=== PATIENT | female | born 1965 | race Caucasian/White ===

== ENCOUNTER 2016-11-29 12:06 | Emergency (ER) | payer OTHER ==
[2016-11-29 12:07] VITALS: BMI 60.5
[2016-11-29 12:19] VITALS: BP 147/94; PULSE 70; RESP 20; TEMP 97.9; O2SAT 98
--- NOTE | 2016-11-29 12:52 | C.PDOC ---
History Of Present Illness 51 yr old female presents to the ER with complaints of pain to the right premolar for the past 2-3 days. Patient reports she wears a partial dentures and thinks its rubbing on her gums. Patient denies fever, throat pain, swelling , drainage or neck pain. Time Seen by Provider: 11/29/16 12:19 Chief Complaint (Nursing): Dental Pain History Per: Patient History/Exam Limitations: no limitations Onset/Duration Of Symptoms: Days (2-3) Current Symptoms Are (Timing): Still Present Past Medical History Reviewed: Historical Data, Nursing Documentation, Vital Signs Vital Signs: Last Vital Signs Temp 97.9 F 11/29/16 12:12 Pulse 70 11/29/16 12:12 Resp 20 11/29/16 12:12 BP 147/94 H 11/29/16 12:12 Pulse Ox 98 11/29/16 12:53 - Medical History PMH: Asthma Surgical History: Family History: States: No Known Family Hx - Social History Hx Tobacco Use: No Hx Alcohol Use: No Hx Substance Use: No - Immunization History Hx Tetanus Toxoid Vaccination: No Hx Influenza Vaccination: No Hx Pneumococcal Vaccination: No Review Of Systems Except As Marked, All Systems Reviewed And Found Negative. Constitutional: Negative for: Fever ENT: Positive for: Other ((+) Right, upper premolar pain. No gum swelling or bleeding. ). Negative for: Throat Pain Musculoskeletal: Negative for: Neck Pain Physical Exam - Physical Exam Appears: Non-toxic, No Acute Distress Skin: Warm, Dry, No Rash Head: Atraumatic, Normacephalic Oral Mucosa: Moist Teeth: Tender To Palpation (Right upper premolar), Other ((+) Right Upper Premolar - No tooth presents. No swelling. No abscess. ) Throat: Normal, No Erythema, No Exudate Neck: Normal, Normal ROM, Supple Extremity: Normal ROM, No Swelling Neurological/Psych: Oriented x3, Normal Speech, Normal Motor ED Course And Treatment O2 Sat by Pulse Oximetry: 98 Medical Decision Making Medical Decision Making: PLAN: * Amoxicillin PO * Motrin PO * Lidocaine Viscous PO On re-exam the patient reports improvement of symptoms. Disposition - Disposition Referrals: Pako Langston DMD [Staff Provider] - Disposition: HOME/ ROUTINE Disposition Time: 12:56 Condition: GOOD Additional Instructions: Follow up with the dentist within 1-2 days, Return if worsened. Prescriptions: Amoxicillin [Amoxil 500 mg Cap] 500 mg PO TID #30 cap Ibuprofen [Motrin Tab] 800 mg PO TID #20 tab traMADol [Ultram] 50 mg PO Q6 PRN #20 tab PRN Reason: Pain, Severe (8-10) Instructions: Toothache (ED) - Clinical Impression Clinical Impression: Toothache, Dental caries - PA / CLOTH PACKER / Resident Statement MD/DO has reviewed & agrees with the documentation as recorded. - Scribe Statement The provider has reviewed the documentation as recorded by the Scribe Wanda Schultz All medical record entries made by the Jayson were at my direction and personally dictated by me. I have reviewed the chart and agree that the record accurately reflects my personal performance of the history, physical exam, medical decision making, and the department course for this patient. I have also personally directed, reviewed, and agree with the discharge instructions and disposition.
== END 2016-11-29 13:03 | disposition home or self-care (01) ==
LOC: C.ER 12:06
DX: K02.9 Dental caries, unspecified (principal)

== ENCOUNTER 2017-03-09 19:27 | Emergency (ER) | payer OTHER ==
[2017-03-09 19:27] VITALS: BMI 60.5
[2017-03-09 19:37] VITALS: TEMP 98.1
--- NOTE | 2017-03-09 20:20 | C.PDOC ---
History Of Present Illness 51 year old female, whose PMHx includes vertigo, presents to the ED for evaluation of new onset of chest pain which began yesterday. Patient describes her pain as a "pressure" like sensation that is associated with nausea and dizziness. Patient reports the dizziness began while she was sitting down and is worse with change in head position. Patient denies dizziness currently in the ED. she denies fever, chills, headache. Time Seen by Provider: 03/09/17 20:11 Chief Complaint (Nursing): Chest Pain History Per: Patient History/Exam Limitations: no limitations Onset/Duration Of Symptoms: Hrs, Sudden Onset Current Symptoms Are (Timing): Still Present Quality: Pressure, "Pain" Associated Symptoms: Nausea Additional History Per: Patient Past Medical History Reviewed: Historical Data, Nursing Documentation, Vital Signs Vital Signs: Last Vital Signs Temp 98.1 F 03/09/17 19:34 Pulse 74 03/09/17 20:58 Resp 18 03/09/17 20:58 BP 150/93 H 03/09/17 20:58 Pulse Ox 98 03/09/17 21:27 - Medical History PMH: Asthma Surgical History: Family History: States: Unknown Family Hx - Social History Hx Tobacco Use: No Hx Alcohol Use: No Hx Substance Use: No - Immunization History Hx Tetanus Toxoid Vaccination: No Hx Influenza Vaccination: No Hx Pneumococcal Vaccination: No Review Of Systems Constitutional: Negative for: Fever, Chills Cardiovascular: Positive for: Chest Pain Gastrointestinal: Positive for: Nausea Neurological: Positive for: Dizziness. Negative for: Headache Physical Exam - Physical Exam Appears: Non-toxic, No Acute Distress Skin: Normal Color, Warm, Dry Head: Atraumatic, Normacephalic Eye(s): right: Normal Inspection, left: Other (fast horizontal nystagmus with inducible vertigo ) Oral Mucosa: Moist Neck: Supple Chest: Symmetrical, No Deformity, No Tenderness Cardiovascular: Rhythm Regular, No Murmur Respiratory: Normal Breath Sounds, No Rales, No Rhonchi, No Wheezing Extremity: Normal ROM, Capillary Refill (less than 2 seconds ) Neurological/Psych: Oriented x3, Normal Speech, Normal Cognition Gait: Steady ED Course And Treatment - Laboratory Results Result Diagrams: 03/09/17 21:00 03/09/17 21:00 ECG: Interpreted By Me ECG Rhythm: Sinus Rhythm ECG Interpretation: Normal Rate From EC O2 Sat by Pulse Oximetry: 98 (on RA) Pulse Ox Interpretation: Normal - Radiology CXR: Interpreted by Me, Viewed By Me CXR Interpretation: Yes: No Acute Disease Progress Note: Labs, EKG, CXR ordered and reviewed. Antivert PO and Zofran PO administered. Progress - Re-Evaluation Re-evaluation Note: 03/09/17 21:27 APPEARS COMFORTABLE VSS. NEURO INTACT STEADY GAIT 03/09/17 22:40 GAIT WNL STEADY FEELS BETTER WISHES DC HOME - Data Reviewed Data Reviewed: Lab, Diagnostic imaging, EKG, Old records Disposition Counseled Patient/Family Regarding: Studies Performed, Diagnosis, Need For Followup, Rx Given - Disposition Referrals: YOUR,PMD [Other] Disposition: HOME/ ROUTINE Disposition Time: 22:40 Condition: IMPROVED Prescriptions: Meclizine [Antivert] 50 mg PO TID PRN #15 tab PRN Reason: Dizziness Instructions: Vertigo (ED), Chest Pain (ED) Forms: [employer] (Citizen Of [place]) Print Language: CITIZEN OF [place] - Clinical Impression Clinical Impression: Chest pain, Vertigo - Scribe Statement The provider has reviewed the documentation as recorded by the Scribe (Ana Herrera) Provider Attestation: All medical record entries made by the Scribe were at my direction and personally dictated by me. I have reviewed the chart and agree that the record accurately reflects my personal performance of the history, physical exam, medical decision making, and the department course for this patient. I have also personally directed, reviewed, and agree with the discharge instructions and disposition.
[2017-03-09 21:06] LABS: BASO # 0.1 K/uL (0.0-0.2); BASO % 1.3 % (0.0-2.0); EOS # 0.3 K/uL (0.0-0.7); EOS % 3.3 % (0.0-4.0); HEMATOCRIT 40.4 % (34.0-47.0); LYMPH % 38.4 % (20.0-40.0); MEAN CORPUSCULAR HEMOGLOBIN 31.2 pg (27.0-31.0); MEAN CORPUSCULAR HGB CONC 34.3 g/dL (33.0-37.0); MEAN PLATELET VOLUME 7.3 fL (7.2-11.7); MONO # 0.6 K/uL (0.0-0.8); MONO % 7.8 % (0.0-10.0); RED CELL DISTRIBUTION WIDTH 12.8 % (11.5-14.5); WHITE BLOOD COUNT 7.7 K/uL (4.8-10.8)
[2017-03-09 21:07] LABS: CHLORIDE 99 mmol/L (98-107); POTASSIUM 3.9 mmol/L (3.6-5.2); SODIUM 134 mmol/L (132-148)
[2017-03-09 21:09] LABS: MEAN CELL VOLUME 90.9 fL (81.0-99.0)
[2017-03-09 21:10] LABS: CARBON DIOXIDE 25 mmol/L (22-30); GFR AFRICAN-AMERICAN > 60
[2017-03-09 21:11] LABS: BLOOD UREA NITROGEN 16 mg/dL (7-17); CALCIUM 8.7 mg/dl (8.6-10.4); GLUCOSE,RANDOM 92 mg/dL (65-105)
[2017-03-09 23:04] VITALS: BP 154/93; PULSE 76; RESP 20; O2SAT 100
--- NOTE | 2017-03-10 08:11 | RAD ---
PROCEDURE: CHEST RADIOGRAPH, 1 VIEW HISTORY: chest pain COMPARISON: Chest radiographs 05/26/2014. FINDINGS: LUNGS: Clear. PLEURA: No pneumothorax or pleural fluid seen. CARDIOVASCULAR: Normal. OSSEOUS STRUCTURES: No significant abnormalities. VISUALIZED UPPER ABDOMEN: Normal. OTHER FINDINGS: None. IMPRESSION: No interval acute cardiopulmonary disease appreciated.
--- NOTE | 2017-03-10 11:49 | CARD ---
APPROVED REPORT EKG Measurement Heart [id number] <Conclusion> Normal sinus rhythm Normal ECG
== END 2017-03-09 23:05 | disposition home or self-care (01) ==
LOC: C.ER 19:27
DX: R42 Dizziness and giddiness (principal); R07.9 Chest pain, unspecified

== ENCOUNTER 2017-12-16 12:24 | Emergency (ER) | payer OTHER ==
[2017-12-16 12:24] VITALS: BMI 60.5
[2017-12-16 12:39] VITALS: BP 144/82; PULSE 76; RESP 18; TEMP 98.4; O2SAT 100
--- NOTE | 2017-12-16 13:00 | C.PDOC ---
History Of Present Illness 52 y/o female presents to ED c/o occasional headache. Pt states she has occasional vertigo, but not today. Notes she ran out of her Meclizine and is requesting refill. Pt has had many prior evaluations for similar symptoms. Notes taking Motrin yesterday, denies taking anything today. Denies fever, or other complaints. Time Seen by Provider: 12/16/17 12:53 Chief Complaint (Nursing): Headache History Per: Patient History/Exam Limitations: no limitations Past Medical History Reviewed: Historical Data, Nursing Documentation, Vital Signs Vital Signs: Last Vital Signs Temp 98.4 F 12/16/17 12:36 Pulse 76 12/16/17 12:36 Resp 18 12/16/17 12:36 BP 144/82 12/16/17 12:36 Pulse Ox 100 12/16/17 13:42 - Medical History PMH: Asthma Surgical History: Family History: States: Unknown Family Hx - Social History Hx Tobacco Use: No Hx Alcohol Use: No Hx Substance Use: No - Immunization History Hx Tetanus Toxoid Vaccination: No Hx Influenza Vaccination: No Hx Pneumococcal Vaccination: No Review Of Systems Except As Marked, All Systems Reviewed And Found Negative. Constitutional: Negative for: Fever, Chills Cardiovascular: Negative for: Chest Pain Respiratory: Negative for: Shortness of Breath Neurological: Positive for: Headache. Negative for: Weakness, Numbness Physical Exam - Physical Exam Appears: Non-toxic, No Acute Distress, Other (smiling) Skin: Normal Color, Warm, Dry Head: Atraumatic, Normacephalic Eye(s): bilateral: Normal Inspection Oral Mucosa: Moist Neck: Normal ROM, Supple Cardiovascular: Rhythm Regular Respiratory: Normal Breath Sounds, No Rales, No Rhonchi, No Wheezing Gastrointestinal/Abdominal: Soft, No Tenderness Extremity: Normal ROM Neurological/Psych: Oriented x3, Normal Speech, Normal Cognition ED Course And Treatment O2 Sat by Pulse Oximetry: 100 Pulse Ox Interpretation: Normal Medical Decision Making Medical Decision Making: occasional headaches, normal exam prior dx vertigo, ran out of Meclizine, refilled anxiety/depression, lost to f/u. refer to [facility] (been there before) and [facility] PRn Disposition Doctor Will See Patient In The: Office Counseled Patient/Family Regarding: Studies Performed, Diagnosis - Disposition Referrals: Marcella Pemberton MD [Medical Doctor] - Disposition: HOME/ ROUTINE Disposition Time: 13:00 Condition: GOOD Additional Instructions: headaches: motrin 400-600 mg every 6 hours as needed or tylenol 1000 mg every 6 hours as needed Vertigo: Meclizine 25 mg every 6 hours as needed Prescriptions: Meclizine [Meclizine*] 25 mg PO Q6 PRN #30 tab PRN Reason: vertigo Instructions: Vertigo (a Type of Dizziness), Headache, Adult Forms: [employer] (Swedish) - Clinical Impression Clinical Impression: Headache, Medication refill - Scribe Statement The provider has reviewed the documentation as recorded by the Scribe KP All medical record entries made by the Scribe were at my direction and personally dictated by me. I have reviewed the chart and agree that the record accurately reflects my personal performance of the history, physical exam, medical decision making, and the department course for this patient. I have also personally directed, reviewed, and agree with the discharge instructions and disposition.
== END 2017-12-16 13:14 | disposition home or self-care (01) ==
LOC: C.ER 12:24
DX: R51 Headache (principal); Z76.0 Encounter for issue of repeat prescription

== ENCOUNTER 2018-04-20 11:38 | Emergency (ER) | payer OTHER ==
[2018-04-20 11:59] VITALS: BMI 29.7
[2018-04-20 12:02] VITALS: O2SAT 98
[2018-04-20 13:05] VITALS: BP 142/87; PULSE 63; RESP 18; TEMP 98.5
--- NOTE | 2018-04-20 13:05 | C.PDOC ---
History Of Present Illness 52 year old female presents to the ED for evaluation of sore throat, headaches, chills and poor appetite which began two weeks ago. Patient reports his symptoms initially started with a runny nose, then progressed to sore throat. She denies vomiting, diarrhea, extremity numbness/weakness or recent travel. Time Seen by Provider: 04/20/18 12:27 Chief Complaint (Nursing): ENT Problem History Per: Patient History/Exam Limitations: None Onset/Duration Of Symptoms: Other (two weeks ) Current Symptoms Are (Timing): Still Present Past Medical History Reviewed: Historical Data, Nursing Documentation, Vital Signs Vital Signs: Last Vital Signs Temp 98.2 F 04/20/18 11:57 Pulse 84 04/20/18 11:57 Resp 17 04/20/18 11:57 BP 129/88 04/20/18 11:57 Pulse Ox 98 04/20/18 11:57 - Medical History PMH: Asthma Surgical History: Family History: States: Unknown Family Hx - Social History Hx Tobacco Use: No Hx Alcohol Use: No Hx Substance Use: No - Immunization History Hx Tetanus Toxoid Vaccination: No Hx Influenza Vaccination: No Hx Pneumococcal Vaccination: No Review Of Systems Constitutional: Positive for: Chills, Other (poor appetite ) ENT: Positive for: Throat Pain Gastrointestinal: Negative for: Vomiting, Diarrhea Neurological: Positive for: Headache. Negative for: Weakness, Numbness Physical Exam - Physical Exam Appears: Non-toxic, No Acute Distress Skin: Normal Color, Warm, Dry, No Rash Head: Atraumatic, Normacephalic Eye(s): bilateral: Normal Inspection, PERRL, EOMI Ear(s): Bilateral: Normal Nose: Normal, No Discharge Oral Mucosa: Moist Throat: Erythema, No Exudate, Other (slight tonsillar swelling ) Neck: Normal ROM, Supple Lymphatic: Adenopathy (cervical) Chest: Symmetrical, No Deformity, No Tenderness Cardiovascular: Rhythm Regular, No Friction Rub, No Murmur Respiratory: Normal Breath Sounds, No Rales, No Rhonchi, No Wheezing Gastrointestinal/Abdominal: Soft, No Tenderness Back: Normal Inspection, No CVA Tenderness Extremity: Normal ROM, No Swelling Neurological/Psych: Oriented x3, Normal Speech, Normal Cognition, Normal Motor Gait: Steady ED Course And Treatment O2 Sat by Pulse Oximetry: 98 (on RA) Pulse Ox Interpretation: Normal Medical Decision Making Medical Decision Making: Progress: Zithromax PO, Motrin PO, and Prednisone PO given. Disposition - Disposition Referrals: Pablo Ruelas MD [Staff Provider] - Disposition: HOME/ ROUTINE Disposition Time: 13:03 Condition: STABLE Additional Instructions: Follow up with the medical doctor within 1-2 days. Return if worsened. Prescriptions: Azithromycin [Zithromax] 250 mg PO DAILY #4 tab Benzonatate [Tessalon Perles] 200 mg PO TID PRN #21 sgl PRN Reason: Cough Ibuprofen [Motrin] 1 tab PO TID PRN #30 tab PRN Reason: Pain predniSONE [Prednisone] 20 mg PO BID #10 tab Instructions: Sore Throat, Adult (DC) Forms: [facility] ([place]), Work Excuse - Clinical Impression Clinical Impression: Pharyngitis - PA / PATHOLOGY LABORATORY AIDES TEACHER / Resident Statement MD/DO has reviewed & agrees with the documentation as recorded. - Scribe Statement The provider has reviewed the documentation as recorded by the Scribe (Ana Herrera) All medical record entries made by the Scribe were at my direction and personally dictated by me. I have reviewed the chart and agree that the record accurately reflects my personal performance of the history, physical exam, med [facility] decision making, and the department course for this patient. I have also personally directed, reviewed, and agree with the discharge instructions and disposition.
== END 2018-04-20 13:19 | disposition home or self-care (01) ==
LOC: C.ER 11:38
DX: J02.9 Acute pharyngitis, unspecified (principal); Z87.891 Personal history of nicotine dependence